=== PATIENT | female | born 1990 | race Caucasian/White ===

== ENCOUNTER 2017-04-15 12:55 | Emergency (ER) | payer MEDICAID ==
[~2017-04-15] VITALS: Ht 152.4 cm; Wt 59.5 kg
[2017-04-15 12:56] VITALS: Ht 152.4 cm; Wt 59.5 kg
[2017-04-15 14:36] LABS: URINE BLOOD (Dip) POC Negative (NEGATIVE)
--- NOTE | 2017-04-15 14:39 | ERD ---
ER Documentation Chief Complaint Chief Complaint HAd syncopal episode, HPI 27-year-old female, previously healthy, presents to the emergency department complaining of a progressive fatigue, dizziness with near fainting episode today after a long hike. She also refers associated weight gain and right knee pain for 4 weeks after a mechanical fall. The patient has a history of anemia but is not taking any medications. One month ago she is started being vegetarian. No fevers no chills, no palpitations no shortness of breath ROS SYSTEMIC symptoms: No fever, no chills, no night sweats EYE symptoms: No eyesight problems. OTOLARYNGEAL symptoms: No hearing loss. CARDIOVASCULAR symptoms: No chest pain or discomfort, no palpitations. PULMONARY symptoms: No dyspnea, no cough, no wheezing. GASTROINTESTINAL symptoms: No abdominal pain, no nausea, no vomiting SKIN no rashes MUSCULOSKELETAL symptoms: No arthralgias, no muscle aches. NEUROLOGY symptoms: No headache, no confusion, no numbness or tingling. All systems reviewed and are negative except as per history of present illness. Medications Home Meds Active Scripts Ibuprofen* (Motrin*) 600 Mg Tab, 600 MG PO Q8, #20 TAB Prov:TIFF FERREIRA MD 04/15/17 PMhx/Soc Medical and Surgical Hx: pt denies Medical Hx, pt denies Surgical Hx Physical Exam Vitals Vital Signs Date Time Temp Pulse Resp B/P Pulse Ox O2 Delivery O2 Flow Rate FiO2 04/15/17 12:56 98.1 89 18 119/66 99 Physical Exam Please exam Patient is in no acute distress, vital signs stable. Alert and fully oriented. EYES: PERRLA, EOMI, Sclera and conjunctiva appear normal. EARS: Canals clear, tympanic membranes WNL THROAT: Normal oropharynx. NECK: Supple, No lymphadenopathy. Full ROM without pain or tenderness. HEART: RRR, no rubs, murmurs, clicks or gallops. LUNGS: Clear to auscultation. ABDOMEN: Soft, non-tender without masses or hepatosplenomegaly. EXTREMITIES: No edema bilaterally. MUSC: Full ROM, no deformity, normal back exam Result Diagram: 04/15/17 1435 04/15/17 1435 Results 24 hrs Laboratory Tests Test 04/15/17 14:35 04/15/17 14:36 White Blood Count 9.510^3/ul Red Blood Count 4.6310^6/ul Hemoglobin 12.7g/dl Hematocrit 39.1% Mean Corpuscular Volume 84.4fl Mean Corpuscular Hemoglobin 27.4pg Mean Corpuscular Hemoglobin Concent 32.5g/dl Red Cell Distribution Width 12.6% Platelet Count 65965^3/UL Mean Platelet Volume 11.2fl Neutrophils % 56.7% Lymphocytes % 36.1% Monocytes % 5.0% Eosinophils % 1.4% Basophils % 0.4% Nucleated Red Blood Cells % 0.0/100WBC Neutrophils # 5.410^3/ul Lymphocytes # 3.410^3/ul Monocytes # 0.510^3/ul Eosinophils # 0.110^3/ul Basophils # 0.010^3/ul Nucleated Red Blood Cells # 0.010^3/ul Sodium Level 140mmol/L Potassium Level 3.6mmol/L Chloride Level 104mmol/L Carbon Dioxide Level 26mmol/L Anion Gap 14 Blood Urea Nitrogen 10mg/dl Creatinine 0.60mg/dl Glucose Level 94mg/dl Calcium Level 9.5mg/dl Total Bilirubin 0.4mg/dl Direct Bilirubin 0.00mg/dl Indirect Bilirubin 0.4mg/dl Aspartate Amino Transf (AST/SGOT) 20IU/L Alanine Aminotransferase (ALT/SGPT) 32IU/L Alkaline Phosphatase 77IU/L Total Protein 8.3g/dl Albumin 4.2g/dl Globulin 4.10g/dl Albumin/Globulin Ratio 1.02 Thyroid Stimulating Hormone (TSH) 2.820MIU/L Bedside Urine pH (LAB) 7.0 Bedside Urine Protein (LAB) Negative Bedside Urine Glucose (UA) Negative Bedside Urine Ketones (LAB) Negative Bedside Urine Blood Negative Bedside Urine Nitrite (LAB) Negative Bedside Urine Leukocyte Esterase (L Negative DIAGNOSTIC IMAGING REPORT Patient: CHAN VERDUZCO : 1990 Age: 27 Sex: F MR #: [id number] DOS: 04/15/17 1440 Ordering MD: TIFF FERREIRA MD Location: [facility] Room/Bed: PROCEDURE: XR Knee. CLINICAL INDICATION: Pain TECHNIQUE: AP, lateral and oblique view of the right knee were obtained. The images reviewed on a PACS workstation. COMPARISON: None. FINDINGS: Three views of the right knee demonstrate no displaced fracture. No gross malalignment is seen. There is no significant degenerate change. No patellofemoral disease is identified. No knee joint effusion is seen.. The bones normally mineralized. The soft tissues are unremarkable. IMPRESSION: No acute fracture dislocation RPTAT: HH .Aleksandar Tavarez MD, Date Time Electronically viewed and signed by .Aleksandar Tavarez MD, on 04/15/2017 15:45 .W/ CC: TIFF FERREIRA MD Procedures/MDM 27-year-old female presents complaining of near fainting episode associated with progressive fatigue. Differential diagnosis include , Dehydration, hypoglycemia, anemia, Electrolyte imbalance, thyroid disease. The physical exam is unremarkable except for mild right knee tenderness. EKG requested showed NSR, no ST elev, no T wave inversion. Intervals wnl. Labs included CBC, CMP and thyroid function all results were at acceptable range. results d/w patient and parents. Rt knee x ray: negative for fracture or dislocation. The patient admits that has been under a lot of stress and stopped exercising regularly about 2 months ago. The patient will be DC home with recommendations for follow up with PCP and start exercising. Departure Diagnosis: Primary Impression: Right knee pain Additional Impression: Asthenia Condition: Stable Patient Instructions: Aerobic Exercise for a Healthy Heart, Weakness, Unk Cause Additional Instructions: Muchas patt por [facility] para corrales servicio. Esperamos que en corrales visita a la nando de emergencia corrales problema medico haya sido solucionado y que se sienta mucho mejor. Para estar seguros que corrales mejoria sigue en proceso, le pedimos el favor de hacer gisselle tg de seguimiento medico con corrales doctor primario en los proximos 2-4 fuentes. Lleve con usted estos documentos y las medicinas recetadas. Si arely sintomas empeoran y no puede yadi a corrales doctor, por favor regrese a nando de emergencia. MARTINEZ-TIFF VERMA MD Apr 15, 2017 14:39
[2017-04-15 14:58] LABS: BASOPHILS % 0.4 % (0.0-2.0); EOSINOPHILS # 0.1 10^3/ul (0.0-0.5); EOSINOPHILS % 1.4 % (0.0-7.0); HEMATOCRIT 39.1 % (37.0-47.0); HEMOGLOBIN 12.7 g/dl (12.0-16.0); LYMPHOCYTES # 3.4 10^3/ul (0.8-2.9); LYMPHOCYTES % 36.1 % (15.0-51.0); MEAN CORPUSCULAR HEMOGLOBIN 27.4 pg (29.0-33.0); MEAN CORPUSCULAR HGB CONC 32.5 g/dl (32.0-37.0); MEAN CORPUSCULAR VOLUME 84.4 fl (82.0-101.0); MEAN PLATELET VOLUME 11.2 fl (7.4-10.4); MONOCYTE # 0.5 10^3/ul (0.3-0.9); NEUTROPHIL # 5.4 10^3/ul (1.6-7.5); NEUTROPHILS % 56.7 % (39.0-77.0); PLATELET COUNT 270 10^3/UL (140-415); RED BLOOD COUNT 4.63 10^6/ul (4.20-5.40); RED CELL DISTRIBUTION WIDTH 12.6 % (11.5-14.5); WHITE BLOOD COUNT 9.5 10^3/ul (4.8-10.8)
[2017-04-15 15:15] LABS: ALBUMIN 4.2 g/dl (3.3-4.9); ALBUMIN/GLOBULIN RATIO 1.02; BILIRUBIN,INDIRECT 0.4 mg/dl (0-1.1); BILIRUBIN,TOTAL 0.4 mg/dl (0.2-1.3); CALCIUM 9.5 mg/dl (8.4-10.2); CREATININE 0.6 mg/dl (0.44-1.00); POTASSIUM 3.6 mmol/L (3.5-5.1); TOTAL PROTEIN 8.3 g/dl (6.1-8.1)
[2017-04-15 15:45] LABS: THYROID STIMULATING HORMONE 2.82 MIU/L (0.465-4.680)
--- NOTE | 2017-04-15 15:46 | RADRPT ---
PROCEDURE: XR Knee. CLINICAL INDICATION: Pain TECHNIQUE: AP, lateral and oblique view of the right knee were obtained. The images reviewed on a PACS workstation. COMPARISON: None. FINDINGS: Three views of the right knee demonstrate no displaced fracture. No gross malalignment is seen. Th ere is no significant degenerate change. No patellofemoral disease is identified. No knee joint effu jyoti is seen.. The bones normally mineralized. The soft tissues are unremarkable. IMPRESSION: No acute fracture dislocation RPTAT: HH .Aleksandar Tavarez MD, MD Date Time Electronically viewed and signed by .Aleksandar Tavarez MD, on 04/15/2017 15:45 .W/
[2017-04-15] MEDS ORDERED: IBUP-1542 PO (16:16)
== END 2017-04-15 16:32 | disposition home or self-care (01) ==
LOC: FTE 12:55
DX: M25.561 Pain in right knee (principal); R53.1 Weakness
CPT/HCPCS: 73562; 80053; 81003; 84443; 85025; Z7502